=== PATIENT | female | born 1995 | race Caucasian/White ===

== ENCOUNTER 2016-11-22 21:46 | Emergency (ER) | END 2016-11-23 01:45 | disposition left against medical advice (07) | LOC: ER 21:46 | DX: Z53.21 Procedure and treatment not carried out due to patient leaving prior to being seen by health care provider (principal) ==

== ENCOUNTER 2017-03-05 19:26 | Emergency (ER) | payer MEDICAID ==
[2017-03-05 22:13] LABS: ABSOLUTE BASOPHILS # (AUTO) 0.1 10^3/uL (0.0-0.2); ABSOLUTE EOSINOPHILS # (AUTO) 0.1 10^3/uL (0.0-0.6); ABSOLUTE LYMPHOCYTES (AUTO) 2.8 10^3/uL (0.5-4.7); ABSOLUTE MONOCYTES (AUTO) 1.2 10^3/uL (0.1-1.4); ABSOLUTE NEUT (AUTO) 13.8 10^3/uL (1.7-8.2); BASOPHILS % (AUTO) 0.3 % (0-2); EOSINOPHILS % (AUTO) 0.6 % (0-6); HEMATOCRIT 41.6 % (36.0-47.0); HEMOGLOBIN 14.1 g/dL (12.0-15.5); HGB HCT DIFFERENCE 0.7; LYMPHOCYTES % (AUTO) 15.4 % (13-45); MEAN CORPUSCULAR HEMOGLOBIN 29.4 pg (27.0-33.4); MEAN CORPUSCULAR VOLUME 87 fl (80-97); MONOCYTES % (AUTO) 6.5 % (3-13); RED CELL DISTRIBUTION WIDTH 14.8 % (11.5-14.0); SEGMENTED NEUTROPHILS % (AUTO) 77.2 % (42-78); WHITE BLOOD COUNT 17.8 10^3/uL (4.0-10.5)
[2017-03-05 22:20] LABS: APPEARANCE,URINE CLOUDY; BILIRUBIN,URINE NEGATIVE (NEGATIVE); GLUCOSE, URINE NEGATIVE (NEGATIVE); KETONES,URINE NEGATIVE (NEGATIVE); LEUKOCYTE ESTERASE,URINE LARGE (NEGATIVE); NITRITE,URINE NEGATIVE (NEGATIVE); PROTEIN,URINE NEGATIVE (NEGATIVE); URINE SPECIFIC GRAVITY 1.011; UROBILINOGEN,URINE NEGATIVE mg/dL (<2.0)
--- NOTE | 2017-03-06 00:54 | ER Document Report ---
ED GI/ - General Chief Complaint: Lower Abdominal Pain Stated Complaint: CRAMPING AND BLEEDING POSSIBLE Notes: Patient is a 21 year old female presents emergency Department complaining of 2 days of vaginal bleeding with cramping. She states that her cramping is at its worse in her left lower quadrant with radiation to the suprapubic area with associated nausea.. Patient states that her last menstrual period was on 12/27/2016 and she typically has a period monthly. She states that she took a test which was positive. She has not followed up with a primary care or CORE DRILL OPERATOR HELPER regarding her . Does not have an CORE DRILL OPERATOR HELPER, does not have a primary care physician. Past medical history denies Past surgical history D&C Social history significant for 3.5 pack years, rare alcohol use. Denies any drug use. Denies any allergies TRAVEL OUTSIDE OF THE [place] IN LAST 30 DAYS: No - Related Data Allergies/Adverse Reactions: No Known Allergies Allergy (Unverified 11/22/16 22:51) Past Medical History - Social History Smoking Status: Current Every Day Smoker Frequency of alcohol use: None Drug Abuse: None Family History: Reviewed & Not Pertinent Renal/ Medical History: Denies: Hx Peritoneal Dialysis Past Surgical History: Reports: Hx Gynecologic Surgery - D&C - Immunizations Hx Diphtheria, Pertussis, Tetanus Vaccination: Yes Review of Systems - Review of Systems Constitutional: No symptoms reported EENT: No symptoms reported Cardiovascular: No symptoms reported Respiratory: No symptoms reported Gastrointestinal: See HPI Genitourinary: No symptoms reported Female Genitourinary: See HPI -: Yes All other systems reviewed and negative Physical Exam - Vital signs Vitals: Temp Pulse BP Pulse Ox 98.3 F 102 H 129/73 H 99 03/05/17 20:13 03/05/17 20:13 03/05/17 20:13 03/05/17 20:13 - Notes Notes: PHYSICAL EXAM GENERAL: Alert, interacts well. HEAD: Normocephalic, atraumatic. EYES: Pupils equal, round, and reactive to light. Extraocular movements intact. ENT: Oral mucosa moist, tongue midline. NECK: Full range of motion. Supple. Trachea midline. LUNGS: Clear to auscultation bilaterally, no wheezes, rales, or rhonchi. No respiratory distress. HEART: Regular rate and rhythm. No murmurs, gallops, or rubs. ABDOMEN: Soft, uterus palpable at the umbilicus. Left lower quadrant tender. No guarding, rebound, or rigidity.. Bowel sounds present in all 4 quadrants. EXTREMITIES: Moves all 4 extremities spontaneously. No edema, radial and dorsalis pedis pulses 2/4 bilaterally. No cyanosis. NEUROLOGICAL: Alert and oriented x4. Normal speech. PSYCH: Normal affect, normal mood. SKIN: Warm, dry, normal turgor. No rashes or lesions noted. Course - Re-evaluation Re-evalutation: 03/06/17 00:54 Patient is a 21-year-old female who is hemodynamically stable, no acute distress and afebrile. CBC reveals leukocytosis of 17.9. Beta hCG is about 12, 000. Transvaginal ultrasound reveals a 22 week . Based on these findings, I have consulted Dr. Roxi Richard who recommends transferring her to labor and delivery service. Discussed this with patient is agreeable for evaluation with labor and delivery. 03/06/17 01:38 Upon discharge from the ED to take her up to L&D, patient stated that she wanted to go home and would follow up with her OBGYN. I was relayed this information by the charge nurse who states she was already walking out the door and wouldnt stay to sign AMA. I was not able to discuss with the patient the indications and concerns requiring her to go to L&D. I was also not able to give the patient a phone number for [facility], discuss with her signs and symptoms to be aware of, or risks of leaving the hospital. - Vital Signs Vital signs: Temp Pulse Resp BP Pulse Ox 98.3 F 102 H 129/73 H 99 03/05/17 20:13 03/05/17 20:13 03/05/17 20:13 03/05/17 20:13 - Laboratory Result Diagrams: 03/05/17 21:56 Laboratory results interpreted by me: 03/05/17 03/05/17 03/05/17 21:56 21:56 21:56 WBC 17.8 H RDW 14.8 H Absolute Neutrophils 13.8 H Beta HCG, Quant 63473.00 H Urine Blood MODERATE H Ur Leukocyte Esterase LARGE H - Diagnostic Test Radiology reviewed: Reports reviewed Discharge - Discharge Clinical Impression: Vaginal bleeding in Condition: Stable Disposition: LABOR CHECK Admitting Provider: [facility] Admitted: Labor and Delivery Referrals: KELLEN ALVAREZ MD [Primary Care Provider] - Follow up as needed
[2017-03-06 01:53] VITALS: BP 122/69
== END 2017-03-06 01:50 | disposition left against medical advice (07) ==
LOC: ER 19:26
DX: O46.91 Antepartum hemorrhage, unspecified, first trimester (principal); R10.32 Left lower quadrant pain; F17.200 Nicotine dependence, unspecified, uncomplicated
CPT/HCPCS: 36415; 76805; 81001; 84702; 85025; 86900; 86901; 93976; 99284

== ENCOUNTER → 2017-03-06 | Outpatient (CLI) | payer MEDICAID | LOC: LC 01:08 | PROVIDERS: ATTEND Specialist | DX: Z53.9 Procedure and treatment not carried out, unspecified reason (principal) ==

== ENCOUNTER 2017-03-16 21:05 | Inpatient (IN) | payer MEDICAID ==
[2017-03-16 21:51] LABS: AMNISURE (ROM) POSITIVE (NEGATIVE)
[2017-03-16 21:56] LABS: ABSOLUTE LYMPHOCYTES (AUTO) 0.9 10^3/uL (0.5-4.7); ABSOLUTE MONOCYTES (AUTO) 0.7 10^3/uL (0.1-1.4); ABSOLUTE NEUT (AUTO) 14.5 10^3/uL (1.7-8.2); BASOPHILS % (AUTO) 0.2 % (0-2); EOSINOPHILS % (AUTO) 0.1 % (0-6); HEMATOCRIT 34.4 % (36.0-47.0); HEMOGLOBIN 11.9 g/dL (12.0-15.5); HGB HCT DIFFERENCE 1.3; LYMPHOCYTES % (AUTO) 5.5 % (13-45); MEAN CORPUSCULAR HEMOGLOBIN 29.3 pg (27.0-33.4); MEAN CORPUSCULAR HGB CONC 34.7 g/dL (32.0-36.0); MEAN CORPUSCULAR VOLUME 85 fl (80-97); MONOCYTES % (AUTO) 4.3 % (3-13); RED BLOOD COUNT 4.07 10^6/uL (3.72-5.28); SEGMENTED NEUTROPHILS % (AUTO) 89.9 % (42-78); WHITE BLOOD COUNT 16.1 10^3/uL (4.0-10.5)
[2017-03-16 21:57] LABS: APPEARANCE,URINE CLEAR; BILIRUBIN,URINE NEGATIVE (NEGATIVE); GLUCOSE, URINE NEGATIVE (NEGATIVE); KETONES,URINE TRACE mg/dL (NEGATIVE); LEUKOCYTE ESTERASE,URINE TRACE (NEGATIVE); NITRITE,URINE NEGATIVE (NEGATIVE); PROTEIN,URINE 30 mg/dL (NEGATIVE); URINE SPECIFIC GRAVITY 1.026
[2017-03-16 22:07] LABS: URINE BARBITURATES SCREEN NEGATIVE; URINE METHADONE SCREEN NEGATIVE; URINE OPIATES LOW NEGATIVE; URINE PHENCYCLIDINE SCREEN NEGATIVE
[2017-03-16] MEDS ORDERED: BETAMET ACET/BETAMET NA INJ 6 MG/1 ML ONE (22:13)
[2017-03-16] MEDS ORDERED: GENTAMICIN SULFATE INJ 80 MG/2 ML VIAL ONE (22:20)
[2017-03-16] MEDS ORDERED: CLINDAMYCIN 900 MG/D5W RTU 50 ML IV ONE (22:20)
[2017-03-16] MEDS ORDERED: MAGNESIUM SULFATE 500 ML IV PRN ×2 (22:22→23:53)
[2017-03-16] MEDS ORDERED: OXYTOCIN/NORMAL SALINE 20 UNIT/1,000 ML RTUINJ ONE (22:47)
[2017-03-16] MEDS ORDERED: MISOPROSTOL 0.2 MG TABLET ONE (22:47)
[2017-03-16] MEDS ORDERED: LIDOCAINE 1% INJ-PF (10 MG/ML) 30 ML SDV ONE (22:47)
[2017-03-16 22:54] LABS: ADD HIVPANEL? NO; HIV (1 AND 2) ANTIBODY NEGATIVE (NEGATIVE)
[2017-03-16] MEDS ORDERED: CEFAZOLIN 2 GM/D5W RTU 2 GM/50 ML RTUPB IV ONE (22:55)
[2017-03-16] MEDS ORDERED: IBUPROFEN 800 MG TABLET ONE (23:14)
[2017-03-16] MEDS ORDERED: ACETAMINOPHEN WITH CODEINE #3 TABLET ONE (23:14)
[2017-03-16] MEDS ORDERED: ACETAMINOPHEN WITH CODEINE #3 TABLET PO ONE (23:15)
[2017-03-17] MEDS ORDERED: ACETAMINOPHEN WITH CODEINE #3 TABLET PO PRN (00:06)
[2017-03-17] MEDS ORDERED: DIPH/PERTUSS(ACELL)/TETANUS VAC/PF 0.5 ML SYR (>=10YO) IM PRN (00:06)
[2017-03-17] MEDS ORDERED: MEASLES,MUMPS&RUBELLA VACC/PF 0.5 ML VIAL SUBCUT PRN (00:06)
[2017-03-17] MEDS ORDERED: OXYTOCIN/NORMAL SALINE 1,000 ML IV PRN (00:06)
[2017-03-17] MEDS ORDERED: DIBUCAINE 1% OINTMENT 28 GM TP PRN (00:06)
[2017-03-17] MEDS ORDERED: BENZOCAINE/MENTHOL AEROSOL SPRAY 56 ML TOP PRN (00:06)
[2017-03-17] MEDS ORDERED: AMPICILLIN SOD INJ 1 GM VIAL ONE ×3 (00:13→08:21)
[2017-03-17] MEDS ORDERED: ZOLPIDEM TARTRATE 5 MG TABLET ONE (01:28)
[2017-03-17] MEDS: ZOLPIDEM TARTRATE 5 MG TABLET PO PRN (01:34)
[2017-03-17] MEDS: AMPICILLIN SOD INJ 1 GM VIAL IV SCH ×2 (04:13→08:29)
[2017-03-17] MEDS ORDERED: CLINDAMYCIN 900 MG/D5W RTU 50 ML IV ONE (05:15)
[2017-03-17] MEDS ORDERED: GENTAMICIN SULFATE INJ 80 MG/2 ML VIAL ONE (05:15)
[2017-03-17] MEDS ORDERED: GENTAMICIN SULFATE INJ 80 MG/2 ML VIAL IV SCH ×2 (06:00→14:00)
[2017-03-17] MEDS ORDERED: GENTAMICIN SULFATE 120 MG in DEXTROSE 5%-WATER 100 ML IV SCH (06:00)
[2017-03-17] MEDS: CLINDAMYCIN 900 MG/D5W RTU 50 ML IV SCH ×3 (06:11→22:05)
--- NOTE | 2017-03-17 06:58 | L&D Progress Notes ---
PROGRESS NOTES Datetime Report Generated by CPN: 03/17/2017 06:58 PROGRESS NOTE Comment: Pt notes lochia decreased. Feeling better. Fundus now nontender. plan to cont abx until tomorrow am and recheck cbc then. VAGINAL EXAM Dilatation: 7 Effacement: 100 Station: 0 SIGNATURE SIGNATURE: [id number] Signature: with User ID: [email or web address]
[2017-03-17 08:12] LABS: ABSOLUTE LYMPHOCYTES (AUTO) 0.9 10^3/uL (0.5-4.7); ABSOLUTE MONOCYTES (AUTO) 0.5 10^3/uL (0.1-1.4); ABSOLUTE NEUT (AUTO) 16.3 10^3/uL (1.7-8.2); BASOPHILS % (AUTO) 0.2 % (0-2); HEMATOCRIT 28.8 % (36.0-47.0); HGB HCT DIFFERENCE 1.2; LYMPHOCYTES % (AUTO) 5.2 % (13-45); MEAN CORPUSCULAR HEMOGLOBIN 29.7 pg (27.0-33.4); MEAN CORPUSCULAR HGB CONC 34.6 g/dL (32.0-36.0); MEAN CORPUSCULAR VOLUME 86 fl (80-97); MONOCYTES % (AUTO) 2.8 % (3-13); RED BLOOD COUNT 3.36 10^6/uL (3.72-5.28); RED CELL DISTRIBUTION WIDTH 13.9 % (11.5-14.0); SEGMENTED NEUTROPHILS % (AUTO) 91.8 % (42-78); WHITE BLOOD COUNT 17.7 10^3/uL (4.0-10.5)
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
[2017-03-17] MEDS: IBUPROFEN 800 MG TABLET PO SCH ×3 (09:34→22:04)
[2017-03-17] MEDS: FERROUS SULFATE 325 MG TABLET PO SCH ×2 (09:51→17:49)
[2017-03-17] MEDS: DOCUSATE SODIUM 100 MG CAPSULE PO SCH ×2 (09:51→17:49)
[2017-03-17] MEDS: SENNOSIDES/DOCUSATE 8.6-50 MG 1 EACH TABLET PO SCH (09:51)
[2017-03-17] MEDS: PRENATAL VITAMIN W-O CA NO5/FE FUMARATE/FA CAPSULE PO SCH (09:51)
[2017-03-17] MEDS: ACETAMINOPHEN WITH CODEINE #3 TABLET PO PRN (12:31)
[2017-03-17] MEDS: AMPICILLIN SODIUM 1 GM in NORMAL SALINE 50 ML IV SCH ×2 (15:50→20:07)
[2017-03-17] MEDS: GENTAMICIN SULFATE 120 MG in DEXTROSE 5%-WATER 100 ML IV SCH (17:48)
--- NOTE | 2017-03-17 18:58 | Delivery Summary ---
Del Sum A-C Datetime Report Generated by CPN: 03/17/2017 18:57 DELIVERY PERSONNEL DELIVERY PERSONNEL: [phone] Delivery Doctor:: Roxi Garces MD Labor and Delivery Nurse:: Veronika Aldrich RNcertified solid waste facility operator Nurse:: Maria Esther Yee RN Medicaid Analyst:: Dr. Dewitt Nurse Practitioner:: DAMARIS See Nursery Nurse:: Loly Benson RN Nursery Nurse:: Jodie Beaver RN Learning And Development Officer/OPERATIONS MANAGEMENT TRAINEE: Mateus Tavera, OPERATIONS MANAGEMENT TRAINEE MATERNAL INFORMATION Delivery Anesthesia: None Medications After Delivery: Pitocin Bolus-Please Comment Meds After Delivery Comment: Pitocin 20 units/1000 mL NS bolus given following delivery Estimated Blood Loss (ml): 100cc Maternal Complications: Precipitous Labor (<3hrs); Premature Rupture of Membranes; Chorioamnionitis Provider Comments: Pt progressed rapidly to complet and pushing. Neck presented and head delivered shortly thereafter. Shoulders and body delivered quickly. Cord clamped, cut and infant to NICU team. Male with apgars of 2 and 4 intubated by manager universal and taken to NICU for further stabilization and transfer if stable enough. Placenta spont and intact. LABOR SUMMARY EDC: 07/04/2017 00:00 No. Babies in Womb: 1 Attempted: No Labor Anesthesia: None LABOR INFORMATION Reason for Induction: Not Applicable Onset of Labor: 03/16/2017 22:15 Complete Dilatation: 03/16/2017 22:45 Oxytocin: N/A Group B Beta Strep: unknown Antibiotics # of Doses: 2 Antibiotics Time of Last Dose: 7 Name of Antibiotic Given: clindamycin/gentamicin Steroids Given: Partial Course; < 24 Hours before Delivery Reason Steroids Not Administered: Imminent Delivery MEMBRANES Membranes Rupture Method: Spontaneous Rupture of Membranes: 03/13/2017 10:00 Length of Rupture (hr): 84.95 Amniotic Fluid Color: Clear Amniotic Fluid Amount: Small Amniotic Fluid Odor: Normal STAGES OF LABOR Stage 1 hr: 0 Stage 1 min: 30 Stage 2 hr: 0 Stage 2 min: 12 Stage 3 hr: 0 Stage 3 min: 2 Total Time in Labor hr: 0 Total Time in Labor min: 44 VAGINAL DELIVERY Episiotomy: None Laceration Extension: N/A Laceration Type: None Laceration Repair: Not Applicable Sponge Count Correct: N/A Sharps Count Correct: N/A CSECTION DELIVERY Primary Indication: N/A Secondary Indication: N/A CSection Incidence: N/A Labor: N/A Elective: N/A CSection Incision: N/A BABY A INFORMATION Infant Delivery Date/Time: 03/16/2017 22:57 Method of Delivery: Vaginal Born in Route : No : N/A Forceps: N/A Vacuum Extraction: N/A Shoulder Dystocia : No PRESENTATION/POSITION BABY A Presentation: Cephalic Cephalic Presentation: Vertex Vertex Position: occipital anterior Breech Presentation: N/A PLACENTA INFORMATION BABY A Placenta Delivery Time : 03/16/2017 22:59 Placenta Method of Delivery: Spontaneous Placenta Status: Delivered SCORES BABY A Heart Rate 1 min: >100 bpm Resp Effort 1 min: Absent Reflex Irritability 1 min: No Response Muscle Tone 1 min: Flaccid Color 1 min: Blue/Pale Resuscitation Effort 1 min: Tactile Stimulation; Oxygen; PPV/NCPAP; Endotracheal Intubation SCORE 1 MIN: 2 Heart Rate 5 min: >100 bpm Resp Effort 5 min: Absent Reflex Irritability 5 min: No Response Muscle Tone 5 min: Some Flexion of Extremities Color 5 min: Body [place], Extremities Blue Resuscitation Effort 5 min: Oxygen; PPV/NCPAP; Endotracheal Intubation SCORE 5 MIN: 4 Heart Rate 10 min: >100 bpm Resp Effort 10 min: Slow, Irregular Reflex Irritability 10 min: [place] Muscle Tone 10 min: Some Flexion of Extremities Color 10 min: Completely [place] Resuscitation Effort 10 min: Oxygen; PPV/NCPAP; Endotracheal Intubation SCORE 10 MIN: 7 INFANT INFORMATION BABY A Gestational Age at Delivery: 24.2 Gestational Status: - <34 Weeks Outcome : Liveborn Infant Condition : Critical Sex: Male IDENTIFICATION BABY A Infant Verification Date/Time: 03/16/2017 23:54 ID Band Number: [id number] Mother's Name Verified: Yes RN Verifying : [facility] Additional Verifying Personnel: K Aakash RN WEIGHT/LENGTH BABY A Infant Birthweight (gm): 740 Weight (lb): 1 Weight (oz): 10 CORD INFORMATION BABY A No. Cord Vessels: 3 Nuchal Cord : N/A Cord Blood Taken: Yes-For Storage (Mom's Blood type +) Suction: Mouth; Nose ASSESSMENT BABY A Infant Complications: Extended Tachycardia; Multiple Variable Decels Skin to Skin: No Medicaid Analyst/ALS Called : Yes Infant Care By: S Heartmann Transferred To: NICU RESUSCITATION BABY A Resuscitation Effort: Oxygen; PPV/NCPAP; Endotracheal Intubation SIGNATURES Signature: with User ID: [email or web address]
[2017-03-18] MEDS: AMPICILLIN SODIUM 1 GM in NORMAL SALINE 50 ML IV SCH ×3 (00:13→07:19)
[2017-03-18] MEDS: GENTAMICIN SULFATE 120 MG in DEXTROSE 5%-WATER 100 ML IV SCH ×2 (02:47→09:12)
[2017-03-18] MEDS: ZOLPIDEM TARTRATE 5 MG TABLET PO PRN (02:47)
[2017-03-18] MEDS: IBUPROFEN 800 MG TABLET PO SCH (05:45)
[2017-03-18] MEDS: CLINDAMYCIN 900 MG/D5W RTU 50 ML IV SCH (05:48)
[2017-03-18 08:39] LABS: HEMATOCRIT 27.6 % (36.0-47.0); HEMOGLOBIN 9.3 g/dL (12.0-15.5); HGB HCT DIFFERENCE 0.3; MEAN CORPUSCULAR HEMOGLOBIN 29.3 pg (27.0-33.4); MEAN CORPUSCULAR HGB CONC 33.7 g/dL (32.0-36.0); MEAN CORPUSCULAR VOLUME 87 fl (80-97); RED BLOOD COUNT 3.18 10^6/uL (3.72-5.28); RED CELL DISTRIBUTION WIDTH 14.1 % (11.5-14.0); WHITE BLOOD COUNT 20.2 10^3/uL (4.0-10.5)
[2017-03-18] MEDS: DOCUSATE SODIUM 100 MG CAPSULE PO SCH (09:11)
[2017-03-18] MEDS: SENNOSIDES/DOCUSATE 8.6-50 MG 1 EACH TABLET PO SCH (09:11)
[2017-03-18] MEDS: FERROUS SULFATE 325 MG TABLET PO SCH (09:11)
[2017-03-18] MEDS: PRENATAL VITAMIN W-O CA NO5/FE FUMARATE/FA CAPSULE PO SCH (09:11)
[2017-03-18] MEDS: ACETAMINOPHEN WITH CODEINE #3 TABLET PO PRN (09:38)
[2017-03-18 10:34] VITALS: BP 105/60
[2017-03-18 12:36] LABS: HEPATITIS C VIRUS AB 0.2 s/co ratio (0.0-0.9)
== END 2017-03-18 10:49 | disposition home or self-care (01) | DRG 775 ==
LOC: LC 21:05 → LR 22:19 → 2S 03-17 08:44
PROVIDERS: ADMIT Specialist; ATTEND Specialist
PROC: 10E0XZZ Delivery of Products of Conception, External Approach (ICD-10-PCS; principal; 2017-03-16)
DX: O42.112 Preterm premature rupture of membranes, onset of labor more than 24 hours following rupture, second trimester (principal); O60.12X0 Preterm labor second trimester with preterm delivery second trimester, not applicable or unspecified; O41.1220 Chorioamnionitis, second trimester, not applicable or unspecified; O62.3 Precipitate labor; O76 Abnormality in fetal heart rate and rhythm complicating labor and delivery; Z3A.24 24 weeks gestation of pregnancy; Z37.0 Single live birth
CPT/HCPCS: 36415; 80307; 81001; 84112; 85025; 85027; 86592; 86701; 86762; 86803; 86804; 86850; 86900; 86901; 87340; 88307; 90715; J0290; J0690; J0702; J1580; J2590; J3490